=== PATIENT | female | born 1935 | race Caucasian/White ===

== ENCOUNTER → 2017-03-15 | Outpatient (CLI) | payer MEDICARE, OTHER ==
--- NOTE | 2017-03-15 13:53 | REP ---
BILATERAL LOWER EXTREMITY DUPLEX DOPPLER ARTERIAL ULTRASOUND: Real-time sonographic ultrasound evaluation and duplex Doppler interrogation of bilateral lower extremity arterial systems is performed. There is mild scattered partially calcified plaque throughout both lower extremity arterial systems. HEAVEN on the right is 1.02 and on the left 1.01. Normal flow velocities and waveforms are see bilaterally without compelling duplex Doppler sonographic evidence of significant arterial stenosis bilaterally. PEAK SYSTOLIC VELOCITY PHASICITY Right common femoral artery 87.4 cm/s Triphasic Profunda 43.7 Biphasic Superficial femoral artery 102.3 Triphasic Popliteal 42.0 Biphasic Anterior tibial artery 79.1 Biphasic Tibial peroneal trunk 53.4 Triphasic Posterior tibial artery proximal 75.7 Biphasic PEAK SYSTOLIC VELOCITY PHASICITY Left common femoral artery 96.3 cm/s Triphasic Profunda 96.6 Triphasic Superficial femoral artery 87.3 Triphasic Popliteal 48.7 Triphasic Anterior tibial artery 60.4 Biphasic Tibial peroneal trunk 46.1 Triphasic Posterior tibial artery 45.4 Biphasic IMPRESSION: No compelling duplex Doppler sonographic evidence of significant stenosis of bilateral lower extremity arterial systems. Mild scattered partially calcified plaquing and narrowing bilaterally. Signed by Donta Bowen MD 03/15/2017 04:19 P
== END ==
LOC: M RAD 10:59
PROVIDERS: ATTEND Surgery Vascular Surgery
DX: I73.89 Other specified peripheral vascular diseases (principal)

== ENCOUNTER → 2019-04-05 | Outpatient (CLI) | payer MEDICARE, OTHER ==
[~2019-04-05] MED LIST: E-Z-GAS II EFFERVESCENT PACKET (SODIUM BICARB./CITRIC ACID/SIMETHICONE) As Ordered ONE; E-Z-HD 98% w/w 340GM SUSP BTL As Ordered ONE; E-Z-PAQUE 96% w/w SUSP 176GM BTL As Ordered ONE
--- NOTE | 2019-04-05 16:30 | REP ---
UPPER GI SINGLE CONTRAST The procedure was performed under the direct supervision of Dr. Bowen. The images were reviewed with Dr. Bowen The marketing program coordinator film shows no organomegaly or pathological masses. The intestinal gas pattern is non-specific. There is a vascular stent identified. Liquid barium was given in the erect position as well as liquid barium in the prone oblique position in order to perform a single contrast upper GI examination. The oral and pharyngeal stages of deglutition are unremarkable. Esophageal transport is prompt and efficient and there is no esophagitis, stricture, mucosal ring or hiatal hernia. There are postsurgical changes consistent with a history of Mari fundoplasty. The stomach melissa are normally outlined . The rugal folds are smooth and regular. There is no gastritis neoplasm or ulcer disease. The duodenal melissa are normally outlined . The mucosal folds are smooth and regular. There is no duodenitis pancreatitis peptic ulcer disease or neoplasm. The visualized portion of the proximal small bowel appears normal in course and caliber. Impression: Postsurgical changes consistent with the patient's history of Mari fundoplasty. Otherwise, unremarkable double contrast upper GI examination. 1.9 minutes of fluoro time was utilized for this procedure. Electronically Signed by EUGENE Haynes 04/05/2019 04:14 P Electronically Signed by Donta Bowen MD 04/05/2019 04:22 P
== END ==
LOC: M RAD 08:14
PROVIDERS: ATTEND Surgery
DX: R10.13 Epigastric pain (principal)